=== PATIENT | male | born 1975 | race Caucasian/White ===

== ENCOUNTER 2016-12-02 05:43 | Emergency (ER) | payer MEDICAID ==
[~2016-12-02] VITALS: Ht 177.8 cm; Wt 81.8 kg
[2016-12-02 05:46] VITALS: Ht 177.8 cm; Wt 81.8 kg
--- NOTE | 2016-12-02 06:11 | ERD ---
ER Documentation Chief Complaint Date/Time DATE: 12/02/16 TIME: 06:09 Chief Complaint s/p dental procedure yesterday. increase facial swelling on left side. HPI This 41-year-old male presents the emergency department today complaining of left-sided facial swelling. Patient states that he went to his dentist yesterday but the tooth was not removed. States he was given antibiotics. Denies any fevers or chills. ROS All systems reviewed and are negative except as per history of present illness. Medications Home Meds Active Scripts Ibuprofen* (Motrin*) 800 Mg Tab, 800 MG PO Q6, #30 TAB Prov:AUNG TORRES PA-C 12/02/16 Hydrocodone/Acetaminophen (Perris 5-325 Tablet) 1 Each Tablet, 1 TAB PO Q6H Y for PAIN, #12 TAB Prov:AUNG TORRES PA-C 12/02/16 Clindamycin Hcl* (Clindamycin Hcl*) 300 Mg Capsule, 300 MG PO TID for 10 Days, CAP Prov:AUNG TORRES PA-C 12/02/16 Allergies Allergies: Coded Allergies: No Known Drug Allergy (Verified Allergy, Unknown, 12/02/16) Physical Exam Vitals Vital Signs Date Time Temp Pulse Resp B/P Pulse Ox O2 Delivery O2 Flow Rate FiO2 12/02/16 05:46 97.1 66 18 137/88 99 Physical Exam Const: No acute distress Head: Atraumatic Eyes: Normal Conjunctiva ENT: Normal External Ears, Nose and Mouth. Mouth with evidence of upper left tooth fracture and left-sided facial swelling Neck: Full range of motion..~ No meningismus. Resp: Clear to auscultation bilaterally Cardio: Regular rate and rhythm, no murmurs Skin: No petechiae or rashes Neur: Awake and alert Psych: Normal Mood and Affect Results 24 hrs Current Medications Medications (Trade) Dose Ordered Sig/Torres Route PRN Reason Start Time Stop Time Status Last Admin Dose Admin Clindamycin Phosphate (Cleocin) 900 mg ONCE ONCE IV 12/02/16 06:30 12/02/16 06:31 Cancel Ketorolac Tromethamine 30 mg 30 mg ONCE STAT IV 12/02/16 06:24 12/02/16 06:26 DC 12/02/16 07:00 Clindamycin HCl/ Dextrose (Cleocin 900 Mg/ D5W (Pmx)) 50 ml @ 50 mls/hr ONCE IVPB 12/02/16 07:00 12/02/16 07:59 DC 12/02/16 07:01 Procedures/MDM This is a 41-year-old male who presents to the emergency department today with dental pain and left-sided facial swelling. On physical exam patient does have evidence of a dental fracture. Patient did see his dentist yesterday and was given Amoxicillin 500 mg however his left-sided facial swelling persists and states that it is more than yesterday. I did have Dr. Nunez see and evaluate the patient and he has recommended the patient be given IV antibiotics for likely dental abscess. Patient is afebrile and otherwise well-appearing. Low suspicion for sepsis at this time. Patient symptoms at this time is consistent with dental pain and left-sided facial swelling most likely dental abscess Patient was given IV clindamycin Toradol here in the emergency department. He will be discharged home with clindamycin in addition to Perris and Motrin. Patient was given referral instructions for [facility] and [facility] [facility] as well given that they are likely to have OMFS. I explained this to the son as well At this time the patient is stable for discharge and outpatient management. Patient should follow up with their PCP in the next 1-2 days. They may return to the emergency department sooner for any persistent or worsening of symptoms. Patient and son understood and agreed with the plan. Departure Diagnosis: Primary Impression: Pain, dental Additional Impression: Swelling of left side of face Condition: AUNG Aragon PA-C Dec 02, 2016 06:11
[2016-12-02] MEDS ORDERED: KETOROLAC 30 MG INJ IV STA (06:24)
[2016-12-02] MEDS ORDERED: CLINDAMYCIN 900 MG INJ IV ONE (06:30)
[2016-12-02] MEDS ORDERED: CLINDAMYCIN 900 MG/D5W (PMX) 50 ML IVPB SCH (07:00)
[2016-12-02] MEDS ORDERED: CLIN-73 PO (08:12)
[2016-12-02] MEDS ORDERED: IBUP800T25 PO (08:13)
[2016-12-02] MEDS ORDERED: HYDR-906 PO (08:13)
== END 2016-12-02 08:26 | disposition home or self-care (01) ==
LOC: FTE 05:43
DX: K08.89 Other specified disorders of teeth and supporting structures (principal)
CPT/HCPCS: 96365; 96375; J1885; Z7502; Z7610